=== PATIENT | female | born 1965 | race Caucasian/White ===

== ENCOUNTER → 2016-11-28 | Outpatient (CLI) | payer OTHER ==
[~2016-11-28] MED LIST: AMLO5TAB2 PO; HYDR12.58 PO; LEVO88TA2 PO
--- NOTE | 2016-11-28 17:27 | RAD ---
DATE: 11/28/2016. EXAM: DIGITAL SCREEN BILAT W/CAD. HISTORY: Routine mammographic screening. COMPARISON: 09/04/2015, 12/21/2013. This study was interpreted with the benefit of Computerized Aided Detection (CAD). FINDINGS: The breast parenchyma is primarily fatty replaced. Breast parenchyma level density A.. There are no suspicious masses, microcalcifications or architectural distortion. A dense focus superiorly on the right has stable correlates. Coarse calcification on the left is benign. BI-RADS CATEGORY: 2 BENIGN FINDING(S). RECOMMENDED FOLLOW-UP: 12M 12 MONTH FOLLOW-UP. PQRS compliance statement: Patient information was entered into a reminder system with a target due date 11/28/2017 for the next mammogram. Mammography is a sensitive method for finding small breast cancers, but it does not detect them all and is not a substitute for careful clinical examination. A negative mammogram does not negate a clinically suspicious finding and should not result in delay in biopsying a clinically suspicious abnormality. "Our facility is accredited by the [employer] Mammography [employer]."
== END | disposition home or self-care (01) ==
LOC: MAMMO 08:40
PROVIDERS: ATTEND Nurse Practitioner
DX: Z12.31 Encounter for screening mammogram for malignant neoplasm of breast (principal)
CPT/HCPCS: G0202; 77067

== ENCOUNTER → 2018-10-26 | Outpatient (CLI) | payer OTHER ==
[~2018-10-26] MED LIST changes: +AMLO5TAB10 PO; -AMLO5TAB2 PO
--- NOTE | 2018-10-30 10:54 | RAD ---
DATE: 10/26/2018 1:16 PM EXAM: DIGITAL SCREEN BILAT W/CAD HISTORY: routine screening evaluation. COMPARISON: 11/28/2016 09/04/2015 Bilateral CC and MLO views of the breasts were performed. Bilateral breast tomosynthesis was performed in CC and MLO projections. Of note, imaging of the left breast is limited as the patient is unable to lift her left arm. This study was interpreted with the benefit of Computerized Aided Detection (CAD). FINDINGS: Breast Density: SCATTERED The breast parenchyma shows scattered fibroglandular densities. Breast parenchyma level B The parenchymal pattern appears stable. No suspicious masses, microcalcifications or architectural distortion is present to suggest malignancy in either breast. The visualized axillae are unremarkable. IMPRESSION: No mammographic evidence of malignancy. BI-RADS CATEGORY: 2 BENIGN FINDING(S) RECOMMENDED FOLLOW-UP: 12M 12 MONTH FOLLOW-UP Annual screening mammography is recommended, unless clinically indicated sooner based on symptoms or change in physical exam. PQRS compliance statement: Patient information was entered into a reminder system with a target due date for the next mammogram. Mammography is a sensitive method for finding small breast cancers, but it does not detect them all and is not a substitute for careful clinical examination. A negative mammogram does not negate a clinically suspicious finding and should not result in delay in biopsying a clinically suspicious abnormality. "Our facility is accredited by the [employer] Mammography [employer]."
== END | disposition home or self-care (01) ==
LOC: MAMMO 12:49
PROVIDERS: ATTEND Nurse Practitioner Family
DX: Z12.31 Encounter for screening mammogram for malignant neoplasm of breast (principal)
CPT/HCPCS: 77067

== ENCOUNTER → 2020-02-09 | Outpatient (CLI) | payer BC ==
[~2020-02-09] MED LIST changes: +AMLO-186 PO; -AMLO5TAB10 PO; +NAPR500T8 PO
--- NOTE | 2020-02-14 15:24 | RAD ---
EXAM: Bilateral screening mammogram. HISTORY: 54-year-old female presents for screening mammography. TECHNIQUE: Full-field digital craniocaudal and mediolateral oblique views of both breasts are obtaine d for evaluation. Computer aided detection was applied. COMPARISON: 10/26/2018 and 11/28/2016 BREAST PARENCHYMAL DENSITY: Level B - Scattered fibroglandular densities. FINDINGS: There is no new suspicious asymmetric density, microcalcification or region of architectura l distortion. There is a left axillary tail lymph node which is excluded from the [id number] on th e most recent comparison study and present on the study performed 11/28/2016. IMPRESSION: BI-RADS Category 2: Benign finding(s). RECOMMENDATION: Annual mammography is recommended. If your mammogram demonstrates that you have dense breast tissue, which could hide abnormalities, and if you have other risk factors for breast cancer that have been identified, you might benefit from s upplemental screening tests that may be suggested by your ordering physician. Dense breast tissue, i n and of itself, is a relatively common condition. This information is not provided to cause undue c oncern, but rather to raise your awareness and to promote discussion with your physician regarding th e presence of other risk factors, in addition to dense breast tissue. A report of your mammography re sults will be sent to you and your physician. You should contact your physician if you have any ques tions or concerns regarding this report. Mammography is a sensitive method for finding small breast cancers, but it does not detect them all a nd is not a substitute for careful clinical examination. A negative mammogram does not negate a clin ically suspicious finding and should not result in delay in biopsying a clinically suspicious abnorma lity. PQRS compliance statement - Patient information was entered into a reminder system with a target due date for the next mammogram. "Our facility is accredited by the [employer] Mammography Program." Electronically signed by: Tana Rodrigues MD (02/14/2020 3:22 PM) [id number]
== END ==
LOC: MAMMO 13:44
PROVIDERS: ATTEND Family Medicine
DX: Z12.31 Encounter for screening mammogram for malignant neoplasm of breast (principal)
CPT/HCPCS: 77067

== ENCOUNTER 2020-03-06 10:06 | Emergency (ER) | payer BC ==
[~2020-03-06] VITALS: Ht 172.7 cm; Wt 61.2 kg
[~2020-03-06 10:06] MED LIST changes: -NAPR500T8 PO
--- NOTE | 2020-03-06 11:11 | PHYS DOC ---
Past History Past Medical History: Hypertension, Hypothyroid Past Surgical History: Other Additional Past Surgical Histo: neck surgery, elbow reconstruction Smoking: Non-smoker Alcohol Use: None Drug Use: None General Adult EDM: Chief Complaint: CHEST PAIN HPI: HPI: Patient is a 55-year-old female here for evaluation of sharp anterior left-sided chest pain that radiates to axilla for 1 day. Pain started yesterday suddenly while she was sitting crocheting. Denies any recent injury or heavy lifting. Patient has had pain in the past. She has had a cough productive of phlegm. Denies any history of heart disease, lung disease, blood clots. Patient smokes a half a pack of cigarettes a day. Denies any fevers, sore throat, back pain. Review of Systems: Review of Systems: All other systems within normal limits except for as noted in the HPI Allergies: Allergies: Allergies Coded Allergies Type Severity Reaction Last Updated Verified Fish Containing Products Allergy Unknown 03/06/20 No Latex, Natural Rubber Allergy Unknown 03/06/20 No Penicillins Allergy Unknown 03/06/20 No iodine Allergy Unknown 03/06/20 No morphine Adverse Reaction Mild Unknown 03/06/20 Yes Physical Exam: PE: Constitutional: Well developed, well nourished, no acute distress, non-toxic appearance. [] HENT: Normocephalic, atraumatic, bilateral external ears normal, nose normal. [] Eyes: PERRLA, conjunctiva normal, no discharge. [] Neck: No rigidity, supple, no stridor. [] Cardiovascular: Regular rate and rhythm, brisk cap refill [] Lungs & Thorax: Non labored symmetric respirations, no tachypnea or respiratory distress. Left anterior chest wall slight tenderness [] Abdomen: Soft, nondistended. Skin: Warm, dry, no erythema, no rash. [] Back: Unremarkable Extremities: No deformities, range of motion grossly intact, no lower extremity edema. No lymphadenopathy in left axilla [] Neurologic: Alert and oriented X 3, no focal deficits noted. [] Psychologic: Affect normal, judgement normal, mood normal. [] Current Patient Data: Vital Signs: Vital Signs Date Time Temp Pulse Resp B/P (MAP) Pulse Ox O2 Delivery O2 Flow Rate FiO2 03/06/20 10:13 97.8 65 20 134/84 (101) 98 Room Air EKG: EKG: Sinus rhythm, heart rate 65 beats per minutes, no ST elevation or depression, no ectopy, normal axis, T waves unremarkable [] Radiology/Procedures: Radiology/Procedures: XR CHEST 2V History: Reason: left anterior chest pain / Spl. Instructions: / History: Comparison: Left shoulder August 22, 2013. Chest x-ray December 20, 2014 Findings: Elevation of the left hemidiaphragm. No consolidation. No pleural effusion. No pneumothorax. Postop changes lower cervical spine. Normal heart size. Chronic deformity of the left proximal humerus. Impression: 1. No acute cardiopulmonary process. [] Heart Score: HEART Score for Chest Pain: HEART Score for Chest Pain Response (Comments) Value History Slighlty/Non-Suspicious 0 ECG Normal 0 Age >45 - < 65 1 Risk Factors 1 or 2 Risk Factors 1 Troponin < Normal Limit 0 Total 2 Risk Factors: Risk Factors: DM, Current or recent (<one month) smoker, HTN, HLP, family history of CAD, obesity. Risk Scores: Score 0 - 3: 2.5% MACE over next 6 weeks - Discharge Home Score 4 - 6: 20.3% MACE over next 6 weeks - Admit for Clinical Observation Score 7 - 10: 72.7% MACE over next 6 weeks - Early Invasive Strategies Course & Med Decision Making: Course & Med Decision Making Pertinent Labs and Imaging studies reviewed. (See chart for details) Work-up unremarkable, pain improved with Toradol. Discussed return precautions and following up with primary care. Heart score of 2 [] Dragon Disclaimer: Dragon Disclaimer: This electronic medical record was generated, in whole or in part, using a voice recognition dictation system. Departure Departure: Impression: Primary Impression: Chest pain Disposition: 01 DC HOME SELF CARE/HOMELESS Condition: STABLE Referrals: ERNESTO THACKER MD (PCP) Patient Instructions: Chest Pain (Nonspecific) Scripts Naproxen (NAPROXEN) 500 Mg Tablet.dr 1 TAB PO BID PRN for PAIN for 10 Days, #20 TAB 2 Refills Prov: CHANTEL FOLEY MD 03/06/20 CHANTEL FOLEY MD Mar 06, 2020 11:11
[2020-03-06] MEDS ORDERED: KETOROLAC 15 MG/ML VIAL. IVP ONE (11:15)
[2020-03-06 11:18] LABS: BASO # 0.1 x10^3/uL (0.0-0.2); BASO % 1 % (0-3); EOS # 0.1 x10^3/uL (0.0-0.7); EOS % 1 % (0-3); HEMATOCRIT 43.3 % (36.0-47.0); HEMOGLOBIN 14.2 g/dL (12.0-15.5); LYMPH # 1.9 x10^3/uL (1.0-4.8); LYMPH % 21 % (24-48); MEAN CORPUSCULAR HEMOGLOBIN 32 pg (25-35); MEAN CORPUSCULAR HGB CONC 33 g/dL (31-37); MEAN CORPUSCULAR VOLUME 96 fL (79-100); MONO # 0.5 x10^3/uL (0.0-1.1); MONO % 6 % (0-9); NEUT # 6.5 x10^3uL (1.8-7.7); NEUT % 72 % (31-73); PLATELET COUNT 177 x10^3/uL (140-400); RED BLOOD COUNT 4.51 x10^6/uL (3.50-5.40); RED CELL DISTRIBUTION WIDTH 13.5 % (11.5-14.5); WHITE BLOOD COUNT 9.1 x10^3/uL (4.0-11.0)
[2020-03-06 11:20] LABS: CALCIUM 9.2 mg/dL (8.5-10.1); CREATININE 0.9 mg/dL (0.6-1.0); GFR 64.5; POTASSIUM 3.8 mmol/L (3.5-5.1)
[2020-03-06 11:32] LABS: ALBUMIN 3.8 g/dL (3.4-5.0); ALBUMIN/GLOBULIN RATIO 1.2 (1.0-1.7); TOTAL BILIRUBIN 0.8 mg/dL (0.2-1.0); TOTAL PROTEIN 7.1 g/dL (6.4-8.2)
--- NOTE | 2020-03-06 11:49 | RAD ---
XR CHEST 2V History: Reason: left anterior chest pain / Spl. Instructions: / History: Comparison: Left shoulder August 22, 2013. Chest x-ray December 20, 2014 Findings: Elevation of the left hemidiaphragm. No consolidation. No pleural effusion. No pneumothorax. Postop c hanges lower cervical spine. Normal heart size. Chronic deformity of the left proximal humerus. Impression: 1. No acute cardiopulmonary process. Electronically signed by: Darnell Goncalves DO (03/06/2020 11:46 AM) [id number]
--- NOTE | 2020-03-06 12:08 | EKG ---
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
[2020-03-06] MEDS ORDERED: NAPR500T8 PO (12:10)
[2020-03-06 12:15] VITALS: BP 102/81
== END 2020-03-06 12:30 | disposition home or self-care (01) ==
LOC: ER 10:06
DX: R07.89 Other chest pain (principal); R05 Cough; I10 Essential (primary) hypertension; E03.9 Hypothyroidism, unspecified; F17.210 Nicotine dependence, cigarettes, uncomplicated; Z91.013 Allergy to seafood; Z91.040 Latex allergy status; Z88.0 Allergy status to penicillin; Z88.5 Allergy status to narcotic agent; Z88.8 Allergy status to other drugs, medicaments and biological substances
CPT/HCPCS: 36415; 71046; 80053; 83880; 84484; 85025; 85379; 93005; 96374; 99285; J1885

== ENCOUNTER 2020-09-17 18:48 | Emergency (ER) | payer BC ==
[~2020-09-17] VITALS: Ht 172.7 cm; Wt 59.4 kg
[~2020-09-17 18:48] MED LIST changes: +NAPR500T8 PO
--- NOTE | 2020-09-17 19:07 | PHYS DOC ---
Past History Past Medical History: Hypertension, Hypothyroid Past Surgical History: Other Additional Past Surgical Histo: neck surgery, elbow reconstruction Smoking: Non-smoker Alcohol Use: None Drug Use: None General Adult EDM: Chief Complaint: SORE THROAT HPI: HPI: "..I was eating..and got something stuck...in my throat... it still feels..like it there ..right here ( Points to just above thyroid cartilage) " Pt. Patient is a 55 year old female who presents with above hx and complaints of globus sensation after eating a hamburger juanita. Patient has had problems with dysphagia in the past. Patient states symptoms have been more present since 2012 cervical neck surgery. Patient denies any problems with respiration, patient has been able to swallow her saliva.. Patient states onset occurred approximately 3 hours ago. The globus sensation however is not resolved in 3 hours. Patient has history of hypertension hypothyroidism. Patient denies any travel. Patient denies any specific ill contact. Patient denies any history immunosuppression. Patient normally follows with Dr. Oquendo. Review of Systems: Review of Systems: Constitutional: Denies fever or chills Eyes: Denies change in visual acuity HENT: Denies nasal congestion. Complains of sore throat Respiratory: Denies cough or shortness of breath Cardiovascular: Denies chest pain or edema GI: Denies abdominal pain, nausea, vomiting, bloody stools or diarrhea : Denies dysuria Musculoskeletal: Denies back pain or joint pain Integument: Denies rash Neurologic: Denies headache, focal weakness or sensory changes Endocrine: Denies polyuria or polydipsia Lymphatic: Denies swollen glands Psychiatric: Denies depression or anxiety Family History: Family History: Noncontributory to presentation Current Medications: Current Meds: See nursing for home meds Allergies: Allergies: Allergies Coded Allergies Type Severity Reaction Last Updated Verified Fish Containing Products Allergy Unknown 03/06/20 No Latex, Natural Rubber Allergy Unknown 03/06/20 No Penicillins Allergy Unknown 03/06/20 No iodine Allergy Unknown 03/06/20 No morphine Adverse Reaction Mild Unknown 03/06/20 Yes Physical Exam: PE: Constitutional: Moderate acute distress, non-toxic appearance. [] HENT: Normocephalic, atraumatic, bilateral external ears normal, oropharynx moist, no oral exudates, nose normal. Old surgery scar right side of neck. Able to see posterior pharynx to the level where she is feels something is stuck. There is some erythema on the long right pharyngeal area. Eyes: PERRLA, EOMI, conjunctiva normal, no discharge. [] Neck: Normal range of motion, no tenderness, supple, no stridor. [] Cardiovascular:Heart rate regular rhythm, no murmur [] Lungs & Thorax: Bilateral breath sounds equal apex on auscultation [] Abdomen: Bowel sounds normal, soft, no tenderness, no masses, no pulsatile masses. Old surgical scar on right Skin: Warm, dry, no erythema, no rash. [] Back: No tenderness, no CVA tenderness. [] Extremities: No tenderness, no cyanosis, no clubbing, ROM intact, no edema. [] Neurologic: Alert and oriented X 3, normal motor function, normal sensory function, no focal deficits noted. [] Psychologic: Affect anxious, judgement normal, mood normal. [] EKG: EKG: My interpretation of EKG shows a sinus rhythm at 60 bpm. There is abnormal morphology to T waves. But no findings of acute STEMI of contralateral changes. Time of EKG is 1041 hrs. [] Radiology/Procedures: Radiology/Procedures: [place] [id number] IMAGING REPORT Signed PATIENT: RITESH SMITH ACCOUNT: [id number] : 1965 LOCATION: ER AGE: 55 SEX: F EXAM STATUS: REG ER ORD. PHYSICIAN: ANTWON SPAULDING MD REASON: food bolus, pain PROCEDURE: ACUTE ABDOMEN SERIES Abdominal Series dated 09/17/2020. No comparison available. Clinical Indication: Abdominal pain. Findings: Single upright PA view the chest shows normal heart and mediastinal contours. Th e lungs are clear without focal consolidation. Vascular interstitium is within normal limits. Flat and upright views of the abdomen show nondilated gas filled loops of bowel. There is elevation of left hemidiaphragm with eventration of colon. No abnormal calcifications are identified. There is no evidence of pneumoperitoneum. No air-fluid levels on the upright view. Moderate amount of stool throughout the colon. Impression chest: No acute radiographic abnormality. Impression abdomen: Non-obstructive bowel gas pattern. Electronically signed by: Monico Shah MD (09/17/2020 8:17 PM) [facility] DICTATED AND SIGNED BY: MONICO SHAH MD DATE: 09/17/202014 CC: ANTWON SPAULDING MD; ERNESTO OQUENDO MD ~MTH0 0 [[address] [address] IMAGING REPORT Signed PATIENT: RITESH SMITH ACCOUNT: [id number] : 1965 LOCATION: ER AGE: 55 SEX: F EXAM STATUS: REG ER ORD. PHYSICIAN: ANTWON SPAULDING MD REASON: Foreign body throat-sensation after eating, history of cervical r PROCEDURE: CT SOFT TISSUE NECK WO CONTRST Exam Date: 09/17/2020 7:[address] NECK SOFT TISSUE WITHOUT CONTRAST Indication: Reason: Foreign body throat-sensation after eating, history of cervical r / Spl. Instructions: / History: . Technique: CT examination of the neck was performed without intravenous contrast. One or more of the following dose reduction techniques were utilized: *Automated exposure control (AEC) *Adjustment of mA and/or kV according to patient size *Use of iterative reconstruction technique *CT scan done according to ALARA, or ALARA/IMAGE GENTLY Findings: Evaluation is limited due to suboptimal positioning in the absence of IV contrast. There are mildly enlarged right cervical lymph nodes, nonspecific. No rad iopaque foreign body is identified. Postoperative changes of anterior fusion at C6-C7 are noted. Mild multilevel degenerative changes are noted. The aerodigestive structures are within normal limits. Specifically, no nasopharyngeal, base of tongue or laryngeal masses are identified. Prevertebral, nasopharyngeal, and oropharyngeal soft tissues are within normal limits. The parotid and submandibular glands are normal. The thyroid gland is normal. The orbits and orbital content are unremarkable. Limited evaluation of the brain parenchyma demonstrates no focal abnormality. Evaluation of the lung apices demonstrates no abnormalities. Degenerative changes are seen in the spine. Impression: Mildly enlarged right cervical lymph nodes are nonspecific. No ra diopaque foreign body is identified. Electronically signed by: Herbert Montilla MD (09/17/2020 8:33 PM) [facility] DICTATED AND SIGNED BY: HERBERT MONTILLA MD DATE: 09/17/202020 CC: ANTWON SPAULDING MD; ERNESTO OQUENDO MD ~[id number] 0 ][address] [address] IMAGING REPORT Signed PATIENT: RITESH SMITH ACCOUNT: [id number] : 1965 LOCATION: ER AGE: 55 SEX: F EXAM STATUS: REG ER ORD. PHYSICIAN: ANTWON SPAULDING MD REASON: Foreign body throat-sensation after eating, history of cervical r PROCEDURE: CT SOFT TISSUE NECK WO CONTRST Exam Date: 09/17/2020 7:[address] NECK SOFT TISSUE WITHOUT CONTRAST Indication: Reason: Foreign body throat-sensation after eating, history of cervical r / Spl. Instructions: / History: . Technique: CT examination of the neck was performed without intravenous contrast. One or more of the following dose reduction techniques were utilized: *Automated exposure control (AEC) *Adjustment of mA and/or kV according to patient size *Use of iterative reconstruction technique *CT scan done according to ALARA, or ALARA/IMAGE GENTLY Findings: Evaluation is limited due to suboptimal positioning in the absence of IV contrast. There are mildly enlarged right cervical lymph nodes, nonspecific. No radiopaque foreign body is identified. Postoperative changes of anterior fusion at C6-C7 are noted. Mild multilevel degenerative changes are noted. The aerodigestive structures are within normal limits. Specifically, no nasopharyngeal, base of tongue or laryngeal masses are identified. Prevertebral, nasopharyngeal, and oropharyngeal soft tissues are within normal limits. The parotid and submandibular glands are normal. The thyroid gland is normal. The orbits and orbital content are unremarkable. Limited evaluation of the brain parenchyma demonstrates no focal abnormality. Evaluation of the lung apices demonstrates no abnormalities. Degenerative changes are seen in the spine. Impression: Mildly enlarged right cervical lymph nodes are nonspecific. No radiopaque foreign body is identified. Electronically signed by: Herbert Montilla MD (09/17/2020 8:33 PM) [facility] DICTATED AND SIGNED BY: HERBERT MONTILLA MD DATE: 09/17/202020 CC: ANTWON SPAULDING MD; ERNESTO OQUENDO MD ~MTH0 0 Heart Score: C/O Chest Pain: N/A HEART Score for Chest Pain: HEART Score for Chest Pain Response (Comments) Value History Slighlty/Non-Suspicious 0 ECG Normal 0 Age >45 - < 65 1 Risk Factors 1 or 2 Risk Factors 1 Troponin < Normal Limit 0 Total 2 Risk Factors: Risk Factors: DM, Current or recent (<one month) smoker, HTN, HLP, family history of CAD, obesity. Risk Scores: Score 0 - 3: 2.5% MACE over next 6 weeks - Discharge Home Score 4 - 6: 20.3% MACE over next 6 weeks - Admit for Clinical Observation Score 7 - 10: 72.7% MACE over next 6 weeks - Early Invasive Strategies Course & Med Decision Making: Course & Med Decision Making Pertinent Labs and Imaging studies reviewed. (See chart for details) Pt. demanding discharge. Pt. refusing admission or further treatment. Begged pt. be transfer and have a GI consult for EGD-food bolus eval. Advised pt. she had also some abnormal labs UTI, elevated lactic acid and anemia. Pt. said she was tried and would not stary any longer. Pt. Did state she would follow up with Dr. Parham office in the morning and if not there with Dr. Petty. Impression: 1. Dysphagia-food bolus 2. Anemia hemoglobin 9.1 3. Dehydration and renal insufficiency-BUN 60 creatinine 1.6 4. Elevated lactic acid 5.9 5. Mild elevation alk phos 122 6. Malnutrition Albumin 2.2 7. Urinary Tract Infection [] Dragon Disclaimer: Dragon Disclaimer: This electronic medical record was generated, in whole or in part, using a voice recognition dictation system. Departure Departure: Referrals: ERNESTO OQUENDO MD (PCP) Dragon Disclaimer This chart was dictated in whole or in part using Voice Recognition software in a busy, high-work load, and often noisy Emergency Department environment. It may contain unintended and wholly unrecognized errors or omissions. Dragon Disclaimer This chart was dictated in whole or in part using Voice Recognition software in a busy, high-work load, and often noisy Emergency Department environment. It may contain unintended and wholly unrecognized errors or omissions. ANTWON SPAULDING MD Sep 17, 2020 19:06
[2020-09-17] MEDS ORDERED: IV RINGERS SOLUTION,LACTATED 1,000 ML IV SCH (19:15)
[2020-09-17] MEDS ORDERED: FAMOTIDINE 20 MG/2 ML VIAL IVP ONE (19:15)
[2020-09-17] MEDS ORDERED: LIDOCAINE 2% VISCOUS 15 ML SOLUTION. SWSW ONE (19:30)
[2020-09-17] MEDS ORDERED: MAGNESIUM HYDROXIDE 2,400 MG/30 ML ORAL.SUSP. PO ONE (19:30)
--- NOTE | 2020-09-17 20:19 | RAD ---
Abdominal Series dated 09/17/2020. No comparison available. Clinical Indication: Abdominal pain. Findings: Single upright PA view the chest shows normal heart and mediastinal contours. The lungs are clear wit hout focal consolidation. Vascular interstitium is within normal limits. Flat and upright views of the abdomen show nondilated gas filled loops of bowel. There is elevation o f left hemidiaphragm with eventration of colon. No abnormal calcifications are identified. There is n o evidence of pneumoperitoneum. No air-fluid levels on the upright view. Moderate amount of stool thr oughout the colon. Impression chest: No acute radiographic abnormality. Impression abdomen: Non-obstructive bowel gas pattern. Electronically signed by: Monico Shah MD (09/17/2020 8:17 PM) [facility]
--- NOTE | 2020-09-17 20:35 | RAD ---
Exam Date: 09/17/2020 7:[address] NECK SOFT TISSUE WITHOUT CONTRAST Indication: Reason: Foreign body throat-sensation after eating, history of cervical r / Spl. Instruct ions: / History: . Technique: CT examination of the neck was performed without intravenous contrast. One or more of the following dose reduction techniques were utilized: *Automated exposure control (AEC) *Adjustment of mA and/or kV according to patient size *Use of iterative reconstruction technique *CT scan done according to ALARA, or ALARA/IMAGE GENTLY Findings: Evaluation is limited due to suboptimal positioning in the absence of IV contrast. There are mildly enlarged right cervical lymph nodes, nonspecific. No radiopaque foreign body is shine ntified. Postoperative changes of anterior fusion at C6-C7 are noted. Mild multilevel degenerative changes are noted. The aerodigestive structures are within normal limits. Specifically, no nasopharyngeal, base of tongu e or laryngeal masses are identified. Prevertebral, nasopharyngeal, and oropharyngeal soft tissues ar e within normal limits. The parotid and submandibular glands are normal. The thyroid gland is lacey l. The orbits and orbital content are unremarkable. Limited evaluation of the brain parenchyma demon strates no focal abnormality. Evaluation of the lung apices demonstrates no abnormalities. Degenera tive changes are seen in the spine. Impression: Mildly enlarged right cervical lymph nodes are nonspecific. No radiopaque foreign body i s identified. Electronically signed by: Roberto Montilla MD (09/17/2020 8:33 PM) [facility]
[2020-09-17 21:56] VITALS: BP 144/86
--- NOTE | 2020-09-18 02:05 | EKG ---
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
== END 2020-09-17 22:03 | disposition home or self-care (01) ==
LOC: ER 18:48
DX: D64.9 Anemia, unspecified (principal); E86.0 Dehydration; R13.10 Dysphagia, unspecified; E46 Unspecified protein-calorie malnutrition; N39.0 Urinary tract infection, site not specified; I10 Essential (primary) hypertension; N28.9 Disorder of kidney and ureter, unspecified; R79.89 Other specified abnormal findings of blood chemistry; R74.02 Elevation of levels of lactic acid dehydrogenase [LDH]; Z68.1 Body mass index [BMI] 19.9 or less, adult; Z88.0 Allergy status to penicillin; Z88.6 Allergy status to analgesic agent
CPT/HCPCS: 70490; 74022; 93005; 96361; 96374; 99285; J3490; J7120

== ENCOUNTER → 2021-03-19 | Outpatient (CLI) | payer OTHER, BC ==
--- NOTE | 2021-03-19 10:05 | RAD ---
XR LUMBAR SPINE 4+V dated 03/19/2021 9:58 AM. History: Reason: BACK PAIN FALL FRIDAY / . Instructions: / History: Comparison: None. Findings: There is some curvature convex to the right. Alignment is otherwise normal. There is no apparent loss of vertebral body height or other evidence for fracture. No destructive process is seen. There is so me narrowing of the L5-S1 disc. Other disks appear fairly well maintained. Impression: 1. No acute bony abnormality evident. Electronically signed by: Yousif Barker Jr., MD (03/19/2021 10:03 AM) [id number]
== END ==
LOC: RAD 09:43
PROVIDERS: ATTEND Nurse Practitioner Family
DX: M48.07 Spinal stenosis, lumbosacral region (principal); M54.50 Low back pain, unspecified; W19.XXXA Unspecified fall, initial encounter
CPT/HCPCS: 72110